=== PATIENT | female | born 1950 | race Caucasian/White ===

== ENCOUNTER → 2023-02-07 12:14 | Outpatient (BNVA) | payer MEDICARE, SELFPAY | PROVIDERS: Visit Provider Internal Medicine | DX: Z11.1 Encounter for screening for respiratory tuberculosis (principal); Z11.59 Encounter for screening for other viral diseases; M79.643 Pain in unspecified hand; L40.50 Arthropathic psoriasis, unspecified | CPT/HCPCS: 80053; 85025; 86480; 86704; 86803; 87340; 99204 ==

== ENCOUNTER → 2023-02-20 10:09 | Outpatient (BNVA) | payer MEDICARE, SELFPAY | PROVIDERS: Visit Provider Internal Medicine | DX: L40.50 Arthropathic psoriasis, unspecified (principal); M19.041 Primary osteoarthritis, right hand; M19.042 Primary osteoarthritis, left hand | CPT/HCPCS: 73120; 99214 ==